=== PATIENT | female | born 1985 ===

== ENCOUNTER 2018-03-18 19:51 | Emergency (ER) | payer BC ==
[2018-03-18] MEDS ORDERED: IBUPROFEN 600 MG TAB PO ONE (20:48)
--- NOTE | 2018-03-18 21:03 | EDPHY ---
H & P Stated Complaint: dog bite to bilat hands Time Seen by Provider: 03/18/18 21:02 HPI/ROS: HPI: This is a 32-year-old female who presents with Chief Complaint: dog bite to bilat hands Location: Both hands Quality: Dog bite Duration: Prior to arrival Signs and Symptoms: No bleeding, no radiation, no numbness, no weakness, no tingling, no incontinence, + decreased range of motion, + swelling, + pain, no fever Timing: Acute Severity: Moderate Context: Patient is right-hand dominant, presents with complaints of dog bite to both of her hands. She reports that her dog is a husky another dog started to fight and she put her hand in between trying to break him up. Animal control is at bedside. She reports that her dog is up-to-date on immunizations including rabies but is not sure if the other dog is immunized. Animal control is currently trying to find out. Patient complains of pain and swelling to the dorsal aspect of her right mid hand. Denies radiation paresthesias, weakness. LMP 1-7 days ago. Reports tetanus is current. Modifying Factors: Washed with soap and water. Comment: ROS: A comprehensive 10 system review of systems is otherwise negative aside from elements mentioned in the history of present illness. MEDICAL/SURGICAL/SOCIAL HISTORY: Medical history: Vitamin-D deficiency Surgical history: Tonsillectomy and wisdom teeth removal. Social history: Nonsmoker. Employed. CONSTITUTIONAL: Polite and cooperative adult white female, awake and alert, no obvious distress HEENT: Atraumatic and normocephalic. NECK: supple EXTREMITIES: 2/2 pulses, strength 5/5, both hands show multiple superficial puncture sites to the dorsal aspect of the middle hand. No active bleeding. There is bruising and mild swelling noted to the mid hand of the right dorsal aspect. Right WRIST: Extension to 70, flexion to 80, radial deviation to 20 degree, ulnar deviation to 30, no scaphoid tenderness, no tenderness over ulnar styloid, no tenderness over radial styloid. DIP/PIP/MCP flexion/extension intact with good light touch sensation. no deformities, no clubbing, no cyanosis or edema. NEUROLOGICAL: no focal neuro deficits. GCS 15. Light touch sensation intact. SKIN: Warm and dry, no erythema. no rash. Good capillary refill. Source: Patient Exam Limitations: No limitations - Personal History LMP (Females 10-55): 1-7 Days Ago Current Tetanus/Diphtheria Vaccine: Yes Current Tetanus Diphtheria and Acellular Pertussis (TDAP): Yes - Medical/Surgical History Hx Asthma: No Hx Chronic Respiratory Disease: No Hx Diabetes: No Hx Cardiac Disease: No Hx Renal Disease: No Hx Cirrhosis: No Hx Alcoholism: No Hx HIV/AIDS: No Hx Splenectomy or Spleen Trauma: No Other PMH: tonsillectomy and wisdom teeth - Social History Smoking Status: Never smoked Constitutional: Initial Vital Signs Temperature (C) 37.0 C 03/18/18 20:01 Heart Rate 74 03/18/18 20:01 Respiratory Rate 16 03/18/18 20:01 Blood Pressure 119/86 H 03/18/18 20:01 O2 Sat (%) 97 03/18/18 20:01 O2 Delivery Mode Room Air Allergies/Adverse Reactions: amoxicillin [From Augmentin] Allergy (Verified 03/18/18 20:05) clavulanic acid [From Augmentin] Allergy (Verified 03/18/18 20:05) Home Medications: Medication Instructions Recorded Doxycycline Hyclate 100 mg PO BID 14 Days tab 03/18/18 Vit D3-Vit K/Berberine/Hops 03/18/18 Medical Decision Making Procedures: Procedure: Splint placement. A right Velcro volar splint was applied by the emergency marine engineering technicians. After application of the splint I returned and re-examined the patient. The splint was adequately immobilizing the joint and distal to the splint the patient's circulation and sensation was intact. ED Course/Re-evaluation: Animal control currently at bedside. Tetanus is current. Soaked in Betadine and normal saline 50/50 solution for 15 min and then scrubbed copiously. Bacitracin clean sterile dressing applied. Allergic to Augmentin; given doxycycline prepack and prescription for same Right hand x-ray ordered my read shows no fracture, dislocation, foreign body. Soft tissue swelling noted. Placed in volar right splint for immobilization. Wound check in the next 2-3 days. Rabies prophylaxis not indicated at this time as other dog will be quarantined. No signs of neurovascular compromise/tenting of skin/compartment syndrome/ extremities and joints examined above and below area of concern and are neurovascularly intact. This patient was seen under the supervision of my secondary supervising physician. I evaluated care for this patient independently. Discussed this patient with Dr. Clarke. Differential Diagnosis: Differential diagnosis includes but is not limited to cellulitis, abscess, puncture wound, foreign body, fracture - Data Points Medications Given: Discontinued Medications Doxycycline Hyclate (Vibramycin 100 Mg Prepack#2) 1 btl TAKEHOME EDNOW ONE Stop: 03/18/18 21:17 Last Admin: 03/18/18 21:43 Dose: 1 btl Ibuprofen (Motrin) 600 mg PO EDNOW ONE Stop: 03/18/18 20:49 Last Admin: 03/18/18 20:59 Dose: 600 mg Departure - Departure Disposition: Home, Routine, Self-Care Clinical Impression: Dog bite of hand Qualifiers: Encounter type: initial encounter Laterality: unspecified laterality Qualified Code(s): S61.459A - Open bite of unspecified hand, initial encounter Condition: Good Instructions: Animal Bite (ED), Doxycycline (By mouth) Additional Instructions: Wear the volar wrist splint until seen for wound check. Keep the dressing dry and in place for 48 hours. After 48 hours, you may remove the dressing; wash the site daily with mild soap and water; then pat dry. Take Tylenol 650 mg every 4 hours and/or Ibuprofen 600 mg every 8 hours with food as needed for pain. Apply ice for 30 minutes at a time; 2-3 times per day for the next 1-2 days. Wound Care Follow-Up: Wound evaluation and dressing change in [2-3] days. There is a charge for this evaluation in the Emergency Department. Return to the ER immediately if you experience redness, red streaks, have fevers /chills, flu like symptoms, limited range of motion, or any other symptoms that concern you. Referrals: Mariama Jansen MD [Primary Care Provider] - Follow Up Only If Needed Prescriptions: Doxycycline Hyclate 100 mg PO BID 14 Days tab
[2018-03-18] MEDS ORDERED: DOXYCYCLINE 100 MG PREPACK#2 BTL TAKEHOME ONE (21:16)
[2018-03-18 22:13] VITALS: BP 135/84
== END 2018-03-18 22:12 | disposition home or self-care (01) ==
DX: S61.451A Open bite of right hand, initial encounter (principal); W54.0XXA Bitten by dog, initial encounter
CPT/HCPCS: L3984